=== PATIENT | female | born 2000 | race African-American/Black ===

== ENCOUNTER 2022-03-30 02:31 | Emergency (ER) | payer OTHER ==
[~2022-03-30] VITALS: Ht 172.7 cm; Wt 54.5 kg
[2022-03-30 02:34] VITALS: TEMP 97.8
[2022-03-30 02:50] LABS: COLLECTION METHOD CLEAN CATCH
[2022-03-30 02:57] LABS: HEMOGLOBIN 13.2 g/dl (12.5-16.0); MEAN CELL VOLUME 97 fl (80.0-100.0); MEAN CORPUSCULAR HEMOGLOBIN 33 pg (27-31); MEAN CORPUSCULAR HGB CONC 34 g/dl (33.0-37.0); MEAN PLATELET VOLUME 9.2 fl (7.4-10.4); PLATELET COUNT 280 K/mm3 (130-400); RED BLOOD COUNT 4.01 M/mm3 (4.10-5.30); REDCELL DISTRIBUTION WIDTH-CV 12.8 % (11.5-14.5)
[2022-03-30 03:02] LABS: SQUAMOUS EPITHELIAL None Seen /hpf (0-10); URINE BACTERIA None Seen /hpf (NONE SEEN); URINE RBC None Seen /hpf (0-2)
[2022-03-30 03:03] LABS: URINE COLOR Colorless (YELLOW)
[2022-03-30 03:04] LABS: URINE APPEARANCE Clear (CLEAR/HAZY); URINE BLOOD Negative (NEGATIVE); URINE GLUCOSE Negative (NEGATIVE); URINE KETONE Negative (NEGATIVE); URINE NITRATE Negative (NEGATIVE); URINE PROTEIN(semi-quant) Negative (NEGATIVE); URINE UROBILINOGEN 0.2 E.U/dL (0.2-1.0)
[2022-03-30 03:08] LABS: ALANINE AMINOTRANSFERASE 11 U/L (0-55); ALBUMIN 4.2 gm/dL (3.5-5.0); ALCOHOL(ethanol),MEDICAL 284 mg/dL (0-10); ALKALINE PHOSPHATASE 60 U/L (40-150); CALCIUM 9.4 mg/dL (8.4-10.2); CHLORIDE 107 mmol/L (98-107); CREATININE, serum 0.93 mg/dL (0.57-1.11); POTASSIUM 3.9 mmol/L (3.5-4.5); SODIUM 144 mmol/L (136-145); TOTAL PROTEIN 8.3 gm/dL (6.2-8.1)
[2022-03-30 03:09] LABS: TRICYCLIC ANTIDEPRESS URINE NEGATIVE
[2022-03-30 03:23] LABS: BAND 2 % (0-10); LYMPHOCYTE 32 % (20.0-51.0); NEUTROPHILS 57 % (42.0-75.2)
[2022-03-30 03:24] LABS: PLATELET ESTIMATE NORMAL (NORMAL)
[2022-03-30 03:29] LABS: ACETAMINOPHEN < 1.0 ug/mL (10-30)
[2022-03-30 03:36] LABS: ANION GAP 15 mmol/L (7-16); AST,SGOT 21 U/L (5-34); BILIRUBIN,TOTAL 0.6 mg/dL (0.2-1.2); BLOOD UREA NITROGEN 8 mg/dL (7-19); CARBON DIOXIDE 22 mmol/L (22-29); GLUCOSE 83 mg/dL (70-99)
[2022-03-30 03:38] LABS: SALICYLATE < 5.0 mg/dL (15.0-30.0)
[2022-03-30 12:32] VITALS: BP 110/96; PULSE 78
== END 2022-03-30 12:32 | disposition home or self-care (01) ==
LOC: COL.ER 02:31
PROVIDERS: Emergency Medicine
DX: F10.129 Alcohol abuse with intoxication, unspecified (principal)
CPT/HCPCS: J1630; J2060; J3411; J7030